=== PATIENT | male | born 2000 | race Caucasian/White ===

== ENCOUNTER 2020-08-15 13:12 | Emergency (ER) | payer BC, SELFPAY ==
[2020-08-15 13:20] VITALS: BP 129/77; PULSE 88; RESP 18; TEMP 35.3; O2SAT 100
--- NOTE | 2020-08-15 14:16 | ED.GENADULT ---
HPI - General Adult General Chief complaint: Wound/Laceration Stated complaint: lesion to back of head Time Seen by Provider: 08/15/20 13:24 Source: patient Mode of arrival: ambulatory Limitations: no limitations History of Present Illness HPI narrative: Patient presents with chief complaint of what he believes is an insect bite to the posterior aspect of his ear after camping over the weekend. Patient states that he did have to brush an insect out of his scalp but he does not feel that it was attached for a extended period of time. Patient states today he woke up with some soreness of the posterior aspect of his he he did have one episode of vomiting. Patient denies intense headache, changes in vision or hearing, neck stiffness, fever, chills, abdominal pain, cough. Patient's medical history is only significant for asthma. Related Data Home Medications Medication Instructions Recorded Confirmed albuterol sulfate [Ventolin HFA] INHALATION 08/15/20 Allergies Allergy/AdvReac Type Severity Reaction Status Date / Time No Known Allergies Allergy Mild Unverified 08/15/20 13:23 Review of Systems Review of Systems: Narrative: CONSTITUTIONAL: Denies fever, chills, or sweats. EYES: Denies visual changes, redness, or discharge. ENT: Denies rhinorrhea, congestion, sore throat, or otalgia. CARDIOVASCULAR: Denies chest pain, palpitations, or edema. RESPIRATORY: Denies cough or dyspnea. GASTROINTESTINAL: Reports one episode of vomiting denies abdominal pain, nausea, or diarrhea. GENITOURINARY: Denies dysuria or hematuria. SKIN: Reports insect bite denies rash or itching. MUSCULOSKELETAL: Denies back pain, neck stiffness, joint pain, or myalgia. NEUROLOGIC: Denies headache, numbness, dizziness, or weakness. PSYCHIATRIC: Denies anxiety or depression. Exam Narrative: Exam Narrative: GENERAL: Well-appearing, well-nourished, and in no acute distress. HEAD: Normocephalic, atraumatic. Insect bite noted to the posterior aspect of patient's scalp. No drainage or ulcerations or necrosis appreciated. No bull's-eye noted around lesion. EYES: PERRLA and EOMI. ENT: Nares clear, no rhinorrhea or epistaxis. Mucous membranes moist. Oropharynx without tonsillar hypertrophy exudate or other lesions. Bilateral TMs pearly andrade nonbulging NECK: Supple. Range of motion intact without stiffness or signs of meningismus.no adenopathy or masses. No carotid bruits or JVD CHEST: Clear to auscultation. No respiratory distress. No wheezes rales or rhonchi HEART: Regular rate and rhythm. No murmur heard. Normal peripheral pulses. ABDOMEN: Soft, nontender, nondistended, normal active bowel sounds. EXTREMITIES: Normal range of motion. No edema. SKIN: Warm, dry, no rash. NEURO: No focal deficits. Alert and oriented x3. PSYCH: Normal mood and affect. Course Vital Signs Vital signs: Vital Signs Temperature 95.6 F L 08/15/20 13:20 Pulse Rate 88 08/15/20 13:20 Respiratory Rate 18 08/15/20 13:20 Blood Pressure 129/77 08/15/20 13:20 Pulse Oximetry 100 08/15/20 13:20 Temperature 95.6 F L 08/15/20 13:20 Pulse Rate 88 08/15/20 13:20 Respiratory Rate 18 08/15/20 13:20 Blood Pressure 129/77 08/15/20 13:20 Pulse Oximetry 100 08/15/20 13:20 Medical Decision Making MDM Narrative Medical decision making narrative: Discussed with patient that we will start doxycycline at this time due to his camping in the possibility of tick bite. Patient should be to follow-up with his primary care in a few days for reevaluation, sooner if there is any questions or concerns. Patient has been instructed to return to emergency department if he develops any worsening or emergent fever including but not limited to fever, vomiting, abdominal pain, headache, neck stiffness or any other emergent symptoms. Patient verbalized understanding of plan and denies any other questions or concerns. Differential Diagnosis Differential Diagnosis: Tickborne disease, me
[2020-08-15 14:25] VITALS: BP 130/82; PULSE 79; RESP 18; O2SAT 100
== END 2020-08-15 14:30 | disposition home or self-care (01) ==
PROVIDERS: Emergency Provider Emergency Medicine; PCP Internal Medicine
DX: S00.06XA Insect bite (nonvenomous) of scalp, initial encounter (principal); W57.XXXA Bitten or stung by nonvenomous insect and other nonvenomous arthropods, initial encounter
CPT/HCPCS: 99283

== ENCOUNTER 2021-02-13 07:33 | Emergency (ER) | payer BC, SELFPAY ==
--- NOTE | ~2021-02-13 | CT_ITS ---
EXAMINATION: CT brain wo con DATE: 02/13/2021 08:34 INDICATION: Headache. TECHNIQUE: Computed tomography (CT) of the head was performed without intravenous contrast. The mA wa s adjusted according to patient size. Iterative reconstruction technique was employed. The dose-lengt h product was 605.33 mGy-cm. COMPARISON: None FINDINGS: There is no intracranial hemorrhage, acute infarction, or abnormal intracranial mass lesion . The ventricles are normal in size. The orbits are normal. There is mild mucosal thickening in the p aranasal sinuses. The mastoid air cells are normal. IMPRESSION: 1. Normal brain. Reviewed, dictated and finalized at location B. IMPRESSION: 1. Normal brain.
[2021-02-13 07:37] VITALS: BP 147/79; PULSE 73; RESP 18; TEMP 36.3; O2SAT 100
[2021-02-13 07:39] VITALS: BP 147/79; O2SAT 100
--- NOTE | 2021-02-13 08:13 | PC.NURSE ---
Dr. Estevez in to see pt at this time.
--- NOTE | 2021-02-13 08:18 | ED.HA ---
HPI - Headache General Chief Complaint: Headache Stated Complaint: headache Time Seen by Provider: 02/13/21 07:57 Source: patient Mode of arrival: ambulatory Limitations: no limitations History of Present Illness HPI Narrative: 20-year-old male Presents with a 1 day history of headache Patient states he started getting a headache yesterday at work which kind of subsided and then returned yesterday evening but which was worse this morning He has no previous history of headaches Pain is primarily left-sided, his left eye seems to be sensitive to light, he did not have any visual symptoms, he has some mild nausea but no vomiting, he has no fever, he has no neck pain, he has no focal neurologic symptoms and he has no cold or sinus complaints He tried putting a cool rag on his head and taking Tylenol with insufficient relief Related Data Home Medications Medication Instructions Recorded Confirmed albuterol sulfate [Ventolin HFA] INHALATION 08/15/20 fluticasone propionate INTRANASAL 02/13/21 Allergies Allergy/AdvReac Type Severity Reaction Status Date / Time No Known Allergies Allergy Mild Unverified 02/13/21 07:42 Review of Systems Review of Systems: All systems reviewed & are unremarkable except as noted in HPI and below Constitutional: Constitutional: Reports no additional constitutional complaints, Denies chills, Denies fever(s), Denies headache(s) and Reports weakness Eyes: Eyes: Reports no additional eye complaints, Denies change in vision and Reports photophobia ENT: Denies vertigo, Denies dizziness, Denies headache(s), Denies nasal congestion and Denies sore throat Cardiovascular: Cardiovascular: Denies chest pain and Denies dyspnea Respiratory: Respiratory: Denies cough Gastrointestinal: Gastrointestinal: Reports nausea and Denies vomiting Musculoskeletal: Musculoskeletal: Denies myalgias, Denies deformity and Denies numbness Integumentary/Breasts: Skin/Breast: Denies rash and Denies wounds Neurologic: Denies confusion, Denies dizziness, Reports headache(s), Denies focal weakness and Denies numbness Psychiatric: Psychiatric: Reports no additional psychiatric complaints Endocrine: Endocrine: Reports no additional endocrine complaints Hematologic/Lymphatic: Hematologic/Lymphatic: Reports no additional hematologic/lymphatic complaints Allergic/Immunologic: Allergic/Immunologic: Reports no additional allergic/immunologic complaints Exam Const: General: cooperative, healthy appearing, no acute distress and alert Orientation/consciousness: patient oriented x3 (alert) HENMT: Head: normal to inspection, normocephalic and atraumatic Ears: external ears normal General nose exam: no epistaxis Face and sinus: sinuses nontender Eyes: Conjunctivae: conjunctivae normal Pupils: Equal, round and reactive pupils present EOM: EOMs intact bilaterally Other: Normal funduscopic Neck: Neck: normal visual inspection, no lymphadenopathy, no meningeal signs, supple and no JVD Other: Supple with full range of motion Resp: Effort & Inspection: normal respiratory effort and not labored Auscultation: clear to auscultation bilaterally and other (BS =) Cardio: Rate: regular rate Rhythm: regular rhythm Heart sounds: no murmurs Skin: General skin exam: normal color and no rashes or lesions noted Neuro: General: patient oriented x3 (alert), moves all extremities, no meningeal signs and no focal motor deficits Cranial nerves: Yes Nystagmus not present Speech: normal speech Extrem: General: normal to inspection Psych: Affect: normal affect Course Course Emergency Course: Imaging unremarkable and improved after medications Discussed with patient and mom, possibly a first migraine, recommend follow-up with PCP Vital Signs Vital signs: Vital Signs Temperature 36.3 C L 02/13/21 07:37 Pulse Rate 73 02/13/21 07:37 Respiratory Rate 18 02/13/21 07:37 Blood Pressure 147/79 H 02/13/21 07:37 Pulse Oxi
--- NOTE | 2021-02-13 08:28 | PC.NURSE ---
Pt to CT at this time.
[2021-02-13] MEDS: LACTATED RINGERS 1,000 ML 999 ML IV CONT (08:58)
[2021-02-13] MEDS: diphenhydrAMINE HCl INJ 50 MG/ML VIAL 25 MG IV PUSH (09:01)
[2021-02-13] MEDS: PROCHLORPERAZINE EDISYLATE 10 MG/2 ML VIAL IV PUSH (09:07)
[2021-02-13 09:15] VITALS: BP 122/76; PULSE 62; RESP 18; O2SAT 100
[2021-02-13 09:53] VITALS: BP 138/76; PULSE 81; RESP 18; O2SAT 98
== END 2021-02-13 09:53 | disposition home or self-care (01) ==
PROVIDERS: Emergency Provider Emergency Medicine; PCP Nurse Practitioner Adult Health
DX: R51.9 Headache, unspecified (principal)
CPT/HCPCS: 70450; 96361; 96374; 96375; 99284; J0780; J1100; J1200; J7120

== ENCOUNTER → 2021-09-25 02:39 | Outpatient (CLI) | payer BC, SELFPAY ==
[2021-09-25 17:58] LABS: SARS-CoV-2 RNA PCR Negative
== END ==
PROVIDERS: PCP Nurse Practitioner Adult Health; Visit Provider Nurse Practitioner Adult Health
DX: R09.81 Nasal congestion (principal); Z20.822 Contact with and (suspected) exposure to COVID-19
CPT/HCPCS: C9803; U0003; U0005

== ENCOUNTER 2023-02-14 10:58 | Emergency (ER) | payer BC, SELFPAY ==
--- NOTE | ~2023-02-14 | XR_ITS ---
EXAMINATION: XR abdomen obstructive series DATE: 02/14/2023 11:23 INDICATION: Vomiting and diarrhea TECHNIQUE: Upright and supine views of the abdomen were obtained. COMPARISON: None. FINDINGS: The bowel gas pattern is normal. There are no dilated loops of bowel. The lung bases are cl ear. The visualized osseous structures are unremarkable. IMPRESSION: 1. No radiographic correlate for the patient's symptoms. Reviewed, dictated and finalized at location A.
--- NOTE | 2023-02-14 11:00 | ED.NAVMDI ---
HPI - Nausea/Vomiting/Diarrhea General Chief complaint: Nausea/Vomiting/Diarrhea Stated complaint: VOMITING Time Seen by Provider: 02/14/23 10:59 Source: patient Mode of arrival: ambulatory Limitations: no limitations History of Present Illness HPI Narrative: Chaim is a 22-year-old male patient presenting to the clinic today with complaints of mid abdomen discomfort, nausea, vomiting, and diarrhea times 5 days. He reports last episode of vomiting was approximately at 4:00 a.m. this morning. Did state he had a some small bowel movement with a little diarrhea this morning. States every time he eats something he feels as though his stomach is on subtle. Is having mid abdominal discomfort just below the umbilicus. Denies any blood in his stool or emesis. Has a slight sore throat with chills but no known fever. Related Data Allergies Allergy/AdvReac Type Severity Reaction Status Date / Time No Known Allergies Allergy Mild Verified 02/14/23 11:09 Review of Systems Review of Systems: Pertinent positives per HPI. Patient denies any fever, chills, rash, headache, visual changes, dizziness, cough, runny nose, sore throat, shortness of breath, chest pain, palpitations, nausea, vomiting, diarrhea, constipation, abdominal pain, or any urinary issues. PMFSH Comments At the time of my signature, I reviewed and agree with the nursing past medical, surgical, social, and family history. There is no relevant family history pertinent to the patient complaint. Exam Narrative: General: Well-developed, well nourished, in no apparent distress Head: Normocephalic, atraumatic Eyes: Pupils equally round and reactive to light bilaterally, EOM intact, sclera and conjunctive clear, no discharge, lids normal Ears: TMs intact and clear, ear canals clear, no drainage, grossly hearing normal. Nose: Nares patent, no discharge, no inflammation, no sinus tenderness. Mouth: Oropharynx mildly red without lesions or masses, good dentition, MMM. Neck: Supple, trachea midline, no enlargement of anterior or posterior cervical nodes, no thyroid masses or goiter palpable. Cardio: Regular rate and rhythm, s1 and s2 normal, no murmur appreciated. Resp: Clear to auscultation bilaterally anteriorly and posteriorly, no rhonchi, rales, wheezing or rubs Abdomen: Soft, pliable, bowel sounds present in all quadrants, mild tender to palpation over the mid lower abdomen just below the umbilicus, no organomegly, no CVAT tenderness. Course Course Emergency Course: Portions of this record may have been created with voice recognition software. Level of Care: Express Care Visit Vital Signs Vital signs: Vital signs reviewed MDM - Nausea/Vomiting/Diarrhea MDM Narrative Medical decision making narrative: At the time of visit patient is resting comfortably on the exam table. X-ray was negative in the clinic today. I suspect patient has gastroenteritis. Prescription for hyoscyamine and Zofran was sent to the pharmacy and supportive measures were discussed with the patient he voiced understanding discharge instructions agrees to treatment plan. Differential Diagnosis Differential diagnosis: Likely traveler's diarrhea, food poisoning, gastroenteritis, drug-induced nausea and vomiting and dehydration Imaging Data Radiologist's impression: [facility] [address] [place] [address] XRay Report Signed Patient: Chaim Deutsch : 2000 MR#: [id number] Age/Sex: 22 / M Acct:[id number] Loc: [facility]? ? ADM Date: 02/14/23Attending Dr: Ordering Physician: Geo Dhaliwal APRN Date of Service: 02/14/23 Procedure(s): XR abdomen obstructive series Accession Number(s): [id number] cc: Geo Dhaliwal APRN; Ramiro, Danika RUVALCABA~ EXAMINATION: XR abdomen obstructive series DATE: 02/14/2023 11:23 INDICATION: Vomiting and diarrhea TECHNIQUE: Upright and supine views of the ab
[2023-02-14 11:09] VITALS: BP 144/90; PULSE 92; RESP 16; TEMP 36.7; O2SAT 100
== END 2023-02-14 11:44 | disposition home or self-care (01) ==
PROVIDERS: Emergency Provider Nurse Practitioner Family; PCP Nurse Practitioner Adult Health
DX: K52.9 Noninfective gastroenteritis and colitis, unspecified (principal); J45.909 Unspecified asthma, uncomplicated
CPT/HCPCS: 74019; 87081; 87880; 99213; G0463

== ENCOUNTER 2025-06-14 11:33 | Emergency (ER) | payer SELFPAY ==
--- NOTE | ~2025-06-14 | XR_ITS ---
EXAM/PROCEDURE: XR ribs LT 2V w CXR 2V - 06/14/2025 12:28 CDT HISTORY: 24 years old Male with ANTERIOR AND POSTERIOR left rib pain, injury TECHNIQUE: 5 view(s) of the chest. COMPARISON: None available. FINDINGS: LUNGS/ PLEURA: No focal consolidation. No appreciable pneumothorax or large pleural effusion. HEART/ MEDIASTINUM: Heart appears normal in size. BONES: No acute osseous abnormality. OTHER: Visualized upper abdomen is unremarkable. IMPRESSION: No acute process. Reviewed, dictated and finalized at location A. IMPRESSION: No acute process.
[2025-06-14 11:44] VITALS: BP 129/85; PULSE 77; RESP 16; TEMP 36.8; O2SAT 100
--- OUTSIDE RECORDS SUMMARY | 2025-06-14 12:05 | XMS_ITS | Encounter Summary ---
Author Organization [facility] Address [address] [place] [address] Care Team Providers Care Information Systems Security Developer Name Role Phone Unavailable Primary Care Provider Unavailabl e Encounter Details Date Type Department Care Team (Late st Contact Info) Description 2000 Outpatient Historical [facility] PSYCHOLOGY PROFESSOR - [facility] [id number] [place] [address] Jose Gann MD [address] [facility] [address] [place], [place] [id number] Social History Tobacco Use Types Packs/Day Years Used Date Smoking Tobacco: Never Assessed Sex and Gender Information Value Date Recorded Sex Assigned at Not on file 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
--- OUTSIDE RECORDS SUMMARY | 2025-06-14 12:06 | XMS_ITS | Encounter Summary ---
Author Organization [facility] Address [address] [facility] Attn: [place] [address] Care Team Providers Care Marine Fitter Name Role Phone Unavailable Primary Care Provider Unavailabl e Encounter Details Date Type Department Care Team (Late st Contact Info) Description 2000 Inpatient Historical Milagros Hernandez MD [address] [place] [id number] Single liveborn, born in hospital, delivered without mention of delivery (Primary Dx) Social History Tobacco Use Types Packs/Day Years Used Date Smoking Tobacco: Never Assessed Sex and Gender Information Value Date Recorded Sex Assigned at Not on file 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
--- OUTSIDE RECORDS SUMMARY | 2025-06-14 12:06 | XMS_ITS | Clinical Summary ---
Author Organization [facility] Address [address] [place] [address] Phone Care Team Providers Care Radiator Mechanic Name Role Phone Unavailable Primary Care Provider Unavailabl e Medications No known medications Active Problems No known active problems Encounters Date Type Department Care Team Description 04/11/2025 External Device Data [facility] ABSTRACTION Provider, Abstract 03/16/2025 External Device Data [facility] ABSTRACTION Provider, Abstract 03/16/2025 External Device Data [facility] ABSTRACTION Provider, Abstract 03/15/2025 External Device Data [facility] ABSTRACTION Provider, Abstract 03/15/2025 External Device Data [facility] ABSTRACTION Provider, Abstract 03/14/2025 External Device Data [facility] ABSTRACTION Provider, Abstract from Last 3 Months Social History Tobacco Use Types Packs/Day Years Used Date Smoking Tobacco: Unknown Tobacco Cessation:Counseling Given: Not Answered Sex and Gender Information Value Date Recorded Sex Assigned at Not on file 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 Gender Identity Not on file Sexual Orientation Not on file Last Filed Vital Signs Vital Sign Reading Time Taken Comments Blood Pressure - - Pulse - - Temperature - - Respiratory Rate - - Oxygen Saturation - - Inhaled Oxygen Concentration - - Weight 74.8 kg (165 lb) 10/12/2024 2:12 PM COSMETOLOGY PROFESSOR Height 175.3 cm (5' 9) 10/12/2024 2:12 PM COSMETOLOGY PROFESSOR Body Mass Index 24.37 10/12/2024 2:12 PM COSMETOLOGY PROFESSOR Plan of Treatment Health Maintenance Due Date Last Done Comments HPV VACCINES (1 - Male 3-dos e series) 2014 DTAP/TDAP/TD VACCINES (1 - Tdap) 2018 HEPATITIS B VACCINES (1 of 3 - 19+ 3-dose series) 2018 INFLUENZA VACCINE (#1) 2025 , 10/03/2020, 12/08/[address] [place] [address] [facility] [employer]
--- OUTSIDE RECORDS SUMMARY | 2025-06-14 12:06 | XMS_ITS | Encounter Summary ---
Author Organization [facility] Address [address] [place] [address] Care Team Providers Care Third Loader Name Role Phone Unavailable Primary Care Provider Unavailabl e Encounter Details Date Type Department Care Team (Late st Contact Info) Description 2000 Outpatient Historical [facility] Pediatrics - [facility] [address] [facility] [address] [address] Oc Elliott MD [address] [facility] [place] [address] Social History Tobacco Use Types Packs/Day Years Used Date Smoking Tobacco: Never Assessed Sex and Gender Information Value Date Recorded Sex Assigned at Not on file 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
--- OUTSIDE RECORDS SUMMARY | 2025-06-14 12:06 | XMS_ITS | Patient Health Record ---
Author Organization [facility] [employer] Address [address] [facility] [address] [place] [address] Care Team Providers Care Special Procedures Technologist Name Role Phone Rosalinda APONTE, Gordy Primary Care Provider Un available Cem Danielistin Unavailable [phone] Kaleb Vasquez Unavailable [phone] Allergies No Known Allergies Reason For Referral No Information Medications Medication SIG (Take, Route, Frequency, Duration) Notes Start Date End Date Status Ondansetron 4 MG Tablet Disintegrating Oral 12/16/2023 Active ProAir HFA 108 (90 Base) MCG/ACT Aerosol Solution Inhalation 12/16/2023 Act emeka Hyoscyamine Sulfate 0.125 MG Tablet Oral 12/16/2023 Active predniSONE 20 MG Tablet Oral 12/16/2023 Active Ergocalciferol 1.25 MG (58828 UT) Capsule Oral 12/16/2023 Active Immunizations Vaccine Route Administration Date Status Comme nts Novel [id number], preservative free Unknown 12/08/2018 Administered Influenza virus vaccine, quadrivalent (IIV4), split virus, 0.25 mL dosage Unknown 10/03/2020 Administered Social History Sex Assigned At : Social History Observation Description Sex Assigned At Male Social History Additional Details Category Social Info Options Details Migrated Social History Migrated Social History Alcohol Intake: None 11/17/2023,Tobacco Years: Former smoker 11/17/2023 Problems Problem Type SNOMED Code ICD Code Onset Dates Problem Status W/U Status Risk Notes Problem Mild recurrent major depression (70268386) Major depressive disorder, recurrent, mild (F33.0) Active confirmed Problem Generalized anxiety disorder (67898300) Generalized anxiety disorder (F41.1) Active confirmed Encounters Encounter Location Date Provider Diagnosis [facility] [address] [facility] [address] [place] [address] 06/20/2024 Kaleb Vasquez Generalized anxiety disorder F41.1 and Recurrent major depressive episodes, mild F33.0 Assessments Encounter Date Diagnosis (ICD Code) Assessment Notes Treatment Notes Treatment Clinical Notes Section Notes 06/20/2024 Generalized anxiety disorder (ICD-10 - F41.1) 23 year old single never male seen today for initial assessment to start therapy. Stated that he saw Candis once for a medication evaluation but does not want to be on any medication at this time. Reported that he endorses a hx of anxiety and depression. Believes anxiety has been worse through out his life and has been present for the past four or five years if not longer. Client when asked what he worries the most about stated; the future, not knowing what I want to do as far as a career, not having enough later in life and being unable to provide for future family, conflict and letting people down. Depression symptoms have been present for the past three years if not longer but for sure worse in the past year and half. Depression symptoms include; passive suicidal thoughts (plan and intent denied), hopelessness, helplessness, little to no aleksey or pleasure in life, isolating behaviors, some sleep problems(which are also affected by work schedule, and problems getting out of bed and starting his day. Family hx is positive for panic attacks and anxiety (father). Suspects father may suffer from depression as well. No psych admissions or out patient therapy reported by client. Stated that for the longest time did not want to admit he needed therapy and that it was not for him.Client born in [facility] and grew up in [place], [place] to parents who have been for 32 years. Described childhood as pretty fun enjoyable, a lot of good memories and had a lot of friends. Added that childhood was colorful. Relationship with parents is good although was as not as good when younger. Although added that he is uncomfortable talking with parents about anxiety and depression symptoms. Client is the youngest of two, older brother. Stated that relationship with brother has gotten better especially the older they get and after brother's discharge from the [place]. Noted that he has thought about joining the but parents do not want him to. 06/20/2024 Recurrent major depressive episodes, mild (ICD-10 - F33.0) 23 year old single never male seen today for initial assessment to start therapy. Stated that he saw Candis once for a medication evaluation but does not want to be on any medication at this time. Reported that he endorses a hx of anxiety and depression. Believes anxiety has been worse through out his life and has been present for the past four or five years if not longer. Client when asked what he worries the most about stated; the future, not knowing what I want to do as far as a career, not having enough later in life and being unable to provide for future family, conflict and letting people down. Depression symptoms have been present for the past three years if not longer but for sure worse in the past year and half. Depression symptoms include; passive suicidal thoughts (plan and intent denied), hopelessness, helplessness, little to no aleksey or pleasure in life, isolating behaviors, some sleep problems(which are also affected by work schedule, and problems getting out of bed and starting his day. Family hx is positive for panic attacks and anxiety (father). Suspects father may suffer from depression as well. No psych admissions or out patient therapy reported by client. Stated that for the longest time did not want to admit he needed therapy and that it was not for him.Client born in [facility] and grew up in [place], [place] to parents who have been for 32 years. Described childhood as pretty fun enjoyable, a lot of good memories and had a lot of friends. Added that childhood was colorful. Relationship with parents is good although was as not as good when younger. Although added that he is uncomfortable talking with parents about anxiety and depression symptoms. Client is the youngest of two, older brother. Stated that relationship with brother has gotten better especially the older they get and after brother's discharge from the [employer] [place]. Noted that he has thought about joining the but parents do not want him to. 06/20/2024 Other Client participated in individual psychotherapy(CB T) related to his hx of anxiety and depression. Based on today's session continued psychotherapy is recommended with no changes to treatment plan. Client presented to session well groomed and fully oriented with no risk of harm to self or others. Client verbal and engaged through out session with appropriate mood and affect. Reported upon presentation that he has been doing well since last seen on 05.24.2024. Client requested to discuss his history of masturbating and relationship with girlfriend. Client expressed concern that his masturbating might have a negative impact on relationship with girlfriend and their sex live. Client's beliefs surrounding masturbation addressed as well. Client receptive to session feedback. Next session in four weeks. 23 year old single never male seen today for initial assessment to start therapy. Stated that he saw Candis once for a medication evaluation but does not want to be on any medication at this time. Reported that he endorses a hx of anxiety and depression. Believes anxiety has been worse through out his life and has been present for the past four or five years if not longer. Client when asked what he worries the most about stated; the future, not knowing what I want to do as far as a career, not having enough later in life and being unable to provide for future family, conflict and letting people down. Depression symptoms have been present for the past three years if not longer but for sure worse in the past year and half. Depression symptoms include; passive suicidal thoughts (plan and intent denied), hopelessness, helplessness, little to no aleksey or pleasure in life, isolating behaviors, some sleep problems(which are also affected by work schedule, and problems getting out of bed and starting his day. Family hx is positive for panic attacks and anxiety (father). Suspects father may suffer from depression as well. No psych admissions or out patient therapy reported by client. Stated that for the longest time did not want to admit he needed therapy and that it was not for him.Client born in [facility] and grew up in [place], [place] to parents who have been for 32 years. Described childhood as pretty fun enjoyable, a lot of good memories and had a lot of friends. Added that childhood was colorful. Relationship with parents is good although was as not as good when younger. Although added that he is uncomfortable talking with parents about anxiety and depression symptoms. Client is the youngest of two, older brother. Stated that relationship with brother has gotten better especially the older they get and after brother's discharge from the [employer]. Noted that he has thought about joining the but parents do not want him to. Plan Of Treatment No Information Insurance Providers Payer Name Payer Address Payer Phone Subscriber Number Group Number Insured Name Patient Relationship to Insured Coverage Start Date Coverage End Date [facility] [address] [place] [address] [id number] GEOVANNI ALCANTAR Self - patient is the insured Medical (General) History Surgical History Surgery Date(Month/Year) Repair of meniscus ([id number]) left, abo ut 10 yrs ago
--- OUTSIDE RECORDS SUMMARY | 2025-06-14 12:06 | XMS_ITS | Encounter Summary ---
Author Organization [facility] Address [address] [place] [address] Care Team Providers Care Flight Test Supervisor Name Role Phone Unavailable Primary Care Provider Unavailabl e Encounter Details Date Type Department Care Team (Late st Contact Info) Description 1999 Outpatient Historical [facility] Pediatrics [facility] [address] [facility] [address] [address] Milagros Hernandez MD [id number] [place] [address] Social History Tobacco Use Types Packs/Day Years Used Date Smoking Tobacco: Never Assessed Sex and Gender Information Value Date Recorded Sex Assigned at Not on file Legal Sex Male 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
--- OUTSIDE RECORDS SUMMARY | 2025-06-14 12:06 | XMS_ITS | Clinical Summary ---
Author Organization [facility] [address] Address [address] [place] [address] Care Team Providers Care Lumber Buyer Name Role Phone Wes Paris MD Primary Care Provider Allergies No known active allergies Medications albuterol HFA (PROVENTIL HFA,VENTOLIN HFA,PROAIR HFA) 90 mcg/actuation inhaler INHALE 2 PUFFS BY MOUTH EVERY 4 HOURS NEEDED FOR 30 DAYS 11/12/2021 Active Active Problems Problem Noted Date Diagnosed Date Mass of knee 12/22/2016 Urinary tract infection 09/13/2014 Infectious warts 08/25/2011 Social History Tobacco Use Types Packs/Day Years Used Date Smoking Tobacco: Never Assessed Sex and Gender Information Value Date Recorded Sex Assigned at Not on file Legal Sex Male 11:41 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 Gender Identity Not on file Sexual Orientation Not on file Obstetrics History Last Filed Vital Signs Vital Sign Reading Time Taken Comments Blood Pressure 112/76 12/04/2021 12:17 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 Pulse 83 12/04/2021 12:17 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 Temperature 36.4 C (97.6 F) 12/04/2021 12:17 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 Respiratory Rate 18 12/04/2021 12:17 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 Oxygen Saturation 100% 12/04/2021 12:17 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 Inhaled Oxygen Concentration - - Weight 73.5 kg (162 lb) 12/04/2021 12:17 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 Height 170.2 cm (5' 7) 12/04/2021 12:17 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 Body Mass Index 25.37 12/04/2021 12:17 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 Plan of Treatment Health Maintenance Due Date Last Done Comments Depression Screening 1999 Hepatitis C Screening 1999 DTaP/Tdap/Td Vaccine (1 - Tdap) 2010 Varicella Vaccines (1 of 2 - 13+ 2-dose series) 2012 Hepatitis B Screening 2017 Regular Well Visit/Exam 18-64 2017 Covid-19 Vaccine (3 - season) 2024 01/18/2021, 12/23/2020 Influenza Vaccine (#1) 2025 , 12/08/2018, 07/14/2017, Additional history exists HPV Vaccines Completed 05/31/2015, 11/26, 05/24/2014 Pneumococcal vaccine <65 Aged Out No longer eligible based on patient's age to complete this topic Insurance [facility] Care Teams Lumber Buyer Relationship Specialty [place] [address] [place] [id number] [facility] - General 02/16/17
--- NOTE | 2025-06-14 12:32 | ECG_ITS ---
Test Date: 2025-06-14 12:59:36 Measurements Intervals [place] Rate: 57 P: 57 DC: 135 QRS: 59 QRSD: 97 T: 43 QT: 403 QTc: 394 Interpretive Statements SINUS BRADYCARDIA POSSIBLE LEFT ATRIAL ENLARGEMENT MINIMAL Q WAVES- ANTEROLAT/INF LEADS ST ELEVATION IN ANTEROLAT/HIGH LAT LEADS- PROBABLY EARLY REPOLARIZATION ABNORMALITY BASELINE WANDER- V3 BORDERLINE ECG No previous ECG available for comparison Electronically Signed On 06-14-2025 13:33:51 CDT by John Richardson D.O.
--- OUTSIDE RECORDS SUMMARY | 2025-06-14 12:38 | XMS_ITS | Encounter Summary ---
Author Organization [facility] Address [address] [place] [facility] Attn: [place] [address] Care Team Providers Care Managing Partner Name Role Phone Unavailable Primary Care Provider Unavailabl e Encounter Details Date Type Department Care Team (Late st Contact Info) Description 1999 Inpatient Historical Milagros Hernandez MD [address] [place] [id number] Single liveborn, born in hospital, delivered without mention of delivery (Primary Dx) Social History Tobacco Use Types Packs/Day Years Used Date Smoking Tobacco: Never Assessed Sex and Gender Information Value Date Recorded Sex Assigned at Not on file Legal Sex Male 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
--- OUTSIDE RECORDS SUMMARY | 2025-06-14 12:38 | XMS_ITS | Encounter Summary ---
Author Organization [facility] Address [address] [place] [address] Care Team Providers Care Regional Service Manager Name Role Phone Unavailable Primary Care Provider Unavailabl e Encounter Details Date Type Department Care Team (Late st Contact Info) Description 1999 Outpatient Historical [facility] - [facility] [address] [facility] [address] [address] Oc Elliott MD [address] [facility] [place] [address] Social History Tobacco Use Types Packs/Day Years Used Date Smoking Tobacco: Never Assessed Sex and Gender Information Value Date Recorded Sex Assigned at Not on file Legal Sex Male 4:12 AM CONCESSION ATTENDANT Gender Identity Not on file Sexual Orientation Not on file documented as of this encounter Plan of Treatment Not on file documented as of this encounter Visit Diagnoses Not on filedocumented in this encounter
--- OUTSIDE RECORDS SUMMARY | 2025-06-14 12:38 | XMS_ITS | Encounter Summary ---
Author Organization [facility] Address 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
--- OUTSIDE RECORDS SUMMARY | 2025-06-14 12:38 | XMS_ITS | Clinical Summary ---
Author Organization [facility] [address] Address [address] [place] [address] Care Team Providers Care Informatics Scientist Name Role Phone Wes Paris MD Primary [...] on file Legal Sex Male 11:41 PM BRAKE TESTER Gender Identity Not on file Sexual Orientation Not on file Obstetrics History Last Filed Vital Signs Vital Sign Reading Time Taken Comments Blood Pressure 112/76 12/04/2021 12:17 PM BRAKE TESTER Pulse 83 12/04/2021 12:17 PM BRAKE TESTER Temperature 36.4 C (97.6 F) 12/04/2021 12:17 PM BRAKE TESTER Respiratory Rate 18 12/04/2021 12:17 PM BRAKE TESTER Oxygen Saturation 100% 12/04/2021 12:17 PM BRAKE TESTER Inhaled Oxygen Concentration - - Weight 73.5 kg (162 lb) 12/04/2021 12:17 PM BRAKE TESTER Height 170.2 cm (5' 7) 12/04/2021 12:17 PM BRAKE TESTER Body Mass Index 25.37 12/04/2021 12:17 PM BRAKE TESTER Plan of Treatment Health Maintenance Due Date [...] patient's age to complete this topic Insurance [facility] Care Teams Informatics Scientist Relationship Specialty [place] [address] [place] [id number] [facility] - General 02/16/17
--- OUTSIDE RECORDS SUMMARY | 2025-06-14 12:38 | XMS_ITS | Clinical Summary ---
Author Organization [facility] Address [address] [place] [address] Phone Care Team Providers Care Business Strategy Manager Name Role Phone Unavailable Primary Care [...] on file Legal Sex Male 4:12 AM PRODUCT MANAGEMENT INTERNSHIP Gender Identity Not on file Sexual Orientation Not on file Last Filed Vital Signs Vital Sign Reading Time Taken Comments Blood Pressure - - Pulse - - Temperature - - Respiratory Rate - - Oxygen Saturation - - Inhaled Oxygen Concentration - - Weight 74.8 kg (165 lb) 10/12/2024 2:12 PM PRODUCT MANAGEMENT INTERNSHIP Height 175.3 cm (5' 9) 10/12/2024 2:12 PM PRODUCT MANAGEMENT INTERNSHIP Body Mass Index 24.37 10/12/2024 2:12 PM PRODUCT MANAGEMENT INTERNSHIP Plan of Treatment Health Maintenance Due Date Last Done Comments HPV VACCINES (1 - Male 3-dos e series) 2014 DTAP/TDAP/TD VACCINES (1 - Tdap) 2018 HEPATITIS B VACCINES (1 of 3 - 19+ 3-dose series) 2018 INFLUENZA VACCINE (#1) 2025 , 10/03/2020, 12/08/[address] [place] [address] [facility] Insiders S.A./[employer] PPO
--- OUTSIDE RECORDS SUMMARY | 2025-06-14 12:38 | XMS_ITS | Encounter Summary ---
Author Organization [facility] Address [address] [place] [address] Care Team Providers Care Powder And Primer Canning Leader Name Role Phone Unavailable Primary Care Provider Unavailabl e Encounter Details Date Type Department Care Team (Late st Contact Info) Description [address] 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
--- NOTE | 2025-06-14 13:11 | ED_ITS ---
HPI - General Adult General Chief complaint: Unspecified Stated complaint: Left rib after colliding with another person Time Seen by Provider: 06/14/25 12:09 Source: patient Mode of arrival: ambulatory Limitations: no limitations History of Present Illness HPI narrative: 24-year-old otherwise healthy here with a complains of left-sided chest pain for past few days. Patient states that he was playing soccer 3 days ago got injured while playing. Patient states that he finished the game and for past 1 day has been having more pain on the left side. He states that occasionally he gets short of breath. he is also worried about cardiac contusion. Onset (ago): day(s) (3) Location: chest Radiation: back Severity: moderate Quality: aching Pain Consistency: constant Relieving factors: none Exacerbating factors: movement Associated symptoms: denies other symptoms Related Data Allergies Allergy/AdvReac Type Severity Reaction Status Date / Time No Known Allergies Allergy Mild Verified 06/14/25 11:35 Review of Systems Review of Systems: All systems reviewed & are unremarkable except as noted in HPI and below Constitutional: Constitutional: Reports no additional constitutional complaints Eyes: Eyes: Reports no additional eye complaints ENT: Reports system reviewed and no additional complaints, except as documen vladimir Cardiovascular: Cardiovascular: Reports as per HPI Respiratory: Respiratory: Reports no additional respiratory complaints Gastrointestinal: Gastrointestinal: Reports no additional gastrointestinal complaints Musculoskeletal: Musculoskeletal: Reports no additional musculoskeletal complaints Neurologic: Reports system reviewed and no additional complaints, except as documented Exam Narrative: GENERAL: Well-appearing, well-nourished, and in no acute distress. HEAD: Normocephalic, atraumatic. EYES: PERRLA and EOMI. ENT: Nares clear, no rhinorrhea or epistaxis. Mucous membranes moist. NECK: Supple. CHEST: Clear to auscultation. No respiratory distress. No bruises noted HEART: Regular rate and rhythm. No murmur heard. Normal peripheral pulses. ABDOMEN: Soft, nontender, nondistended, normal active bowel sounds. EXTREMITIES: Normal range of motion. No edema. SKIN: Warm, dry, no rash. NEURO: No focal deficits. Alert and oriented x3. PSYCH: Normal mood and affect. Course Course Emergency Course: Informed patient about his chest EKG findings. Advised him to take pain medication as prescribed. Follow with the primary doctor as needed Vital Signs Vital signs: Vital Signs Temperature 36.8 C 06/14/25 11:44 Pulse Rate 77 06/14/25 11:44 Respiratory Rate 16 06/14/25 11:44 Blood Pressure 129/85 06/14/25 11:44 Pulse Oximetry 100 06/14/25 11:44 Temperature 36.8 C 06/14/25 11:44 Pulse Rate 77 06/14/25 11:44 Respiratory Rate 16 06/14/25 11:44 Blood Pressure 129/85 06/14/25 11:44 Pulse Oximetry 100 06/14/25 11:44 Medical Decision Making Vital Signs Vital Signs: Vital Signs Temperature 36.8 C 06/14/25 11:44 Pulse Rate 77 06/14/25 11:44 Respiratory Rate 16 06/14/25 11:44 Blood Pressure 129/85 06/14/25 11:44 Pulse Oximetry 100 06/14/25 11:44 Temperature 36.8 C 06/14/25 11:44 Pulse Rate 77 06/14/25 11:44 Respiratory Rate 16 06/14/25 11:44 Blood Pressure 129/85 06/14/25 11:44 Pulse Oximetry 100 06/14/25 11:44 Imaging Data Radiologist's impression: ITS Impressions Ribs w/Chest X-Ray 06/14/25 12:39 IMPRESSION: No acute process. ECG Data EKG #1: ECG completion time: 12:59 EKG Interpretation: bradycardia (57), sinus rhythm, no ectopy, no ST changes and normal QRS Discharge Plan Discharge Clinical Impression: Contusion of rib on left side Qualifiers: Encounter type: initial encounter Qualified Code(s): S29.8XXA - Other specified injuries of thorax, initial encounter Patient Disposition: Home Condition: Stable Instructions: Antibiotic Form, Chest Contusion (ED) Patient Language: [place] Prescriptions: New naproxen sodium [Anaprox DS] 550 mg tablet 550 mg PO Q12H PRN (Reason: pain) Qty: 14 0RF No Action ondansetron 4 mg tablet,disintegrating 4 mg PO Q6H PRN (Reason: nausea and vomiting) 3 Days Qty: 12 0RF hyoscyamine sulfate 0.125 mg tablet 0.125 mg PO QID PRN (Reason: dyspepsia) 3 Days Qty: 12 0RF Follow-up/Referrals: Brandyn Parham MD [Physician, Family Practice] PHYSICIAN NOT ON STAFF,NONSTAFF [Primary Care Provider] Time of Disposition: 13:12
== END 2025-06-14 13:19 | disposition home or self-care (01) ==
PROVIDERS: Emergency Provider Family Medicine
DX: S29.8XXA Other specified injuries of thorax, initial encounter (principal); W51.XXXA Accidental striking against or bumped into by another person, initial encounter; Y93.66 Activity, soccer
CPT/HCPCS: 71046; 71100; 93005; 99283